=== PATIENT | male | born 1955 | race Two or more races ===

== ENCOUNTER 2016-10-16 12:33 | Observation (INO) | payer MEDICAID ==
[~2016-10-16] VITALS: Ht 165.1 cm; Wt 63.5 kg
[2016-10-16] MEDS ORDERED: SODIUM CHLORIDE 0.9% 1,000 ML IV ONE (13:18)
[2016-10-16] MEDS ORDERED: NALBUPHINE HCL 10 MG/1ml INJECTION IV ONE (13:30)
[2016-10-16] MEDS ORDERED: METOCLOPRAMIDE HCL 5MG/ml INJ 2ml VIAL IV ONE (13:30)
[2016-10-16 14:06] LABS: Basophils # (auto) 0 uL; Basophils % (auto) 0.1 % (0.0-2.0); DEFINITIVE VIEW TRANSMISSION; Eosinophils # (auto) 0.1 uL; Eosinophils % (auto) 0.7 % (0.0-7.0); Hemoglobin 11.3 g/dL (13.5-17.5); Lymphocytes # (auto) 2.8 uL; Lymphocytes % (auto) 13.8 % (10.0-50.0); Mean Corpuscular Hemoglobin 29.9 pg (28.0-32.0); Mean Corpuscular Hgb Conc. 32.3 g/dL (32.0-36.0); Mean Corpuscular Volume 92.5 fL (80.0-100.0); Mean Platelet Volume 7.1 fL (7.4-10.4); Monocytes # (auto) 1.4 uL; Monocytes % (auto) 7.1 % (0.0-12.0); Neutrophils # (auto) 15.7 uL; Neutrophils % (auto) 78.3 % (37.0-80.0); Platelet Count (auto) 352 10^3/uL (140-450); SUSPECT VIEW TRANSMISSION; White Blood Cell 20.1 10^3/uL (4.4-10.8)
[2016-10-16 14:10] LABS: Red Cell Distribution Width 26.5 % (11.6-16.0)
[2016-10-16 14:24] LABS: Albumin 3.3 g/dL (3.4-5.0); BUN/Creatinine Ratio 16.3; Calcium 8.9 mg/dL (8.5-10.1); Magnesium 2.2 mg/dL (1.6-2.6); Potassium 3.9 mmol/L (3.5-5.1)
[2016-10-16 14:25] LABS: Bilirubin, Total 0.7 mg/dL (0.2-1.0)
[2016-10-16 14:26] LABS: Total Protein 7.7 g/dL (6.4-8.2)
[2016-10-16 14:29] LABS: Anisocytosis Moderate; Platelet Estimate Adequate
[2016-10-16] MEDS ORDERED: ALPRAZolam 0.5 MG TAB PO ONE (17:15)
[2016-10-16] MEDS ORDERED: cefTRIAXone 1GM/50ML D5W 50 ML IV ONE ×2 (17:30→21:30)
[2016-10-16] MEDS ORDERED: ONDANSETRON HCL 4 MG/2 ML VIAL IV ONE ×2 (19:15→21:45)
[2016-10-16] MEDS ORDERED: MORPHINE SULFATE 4 MG/ML SYRG IV ONE (19:15)
[2016-10-16 20:29] LABS: Urine Bilirubin Negative (Negative); Urine Color Yellow (Yellow); Urine Glucose Normal (Normal); Urine Ketone Negative (Negative); Urine Nitrite Negative (Negative); Urine RBC 152 /hpf (0 - 3); Urine Urobilinogen Normal (Negative); Urine pH 6.5 (5.0-8.0)
[2016-10-16] MEDS ORDERED: CLINDAMYCIN 900MG IV 50 ML IV ONE (20:30)
[2016-10-16 20:32] LABS: Urine Blood 2+ /uL (Negative)
[2016-10-16] MEDS ORDERED: HYDROmorphone HCL 2 MG/ML VL IV ONE (21:45)
[2016-10-16] MEDS ORDERED: HYDROcodone-ACET 10/325MG TAB PO ONE (23:45)
[2016-10-17] MEDS ORDERED: diphenhdrAMINE HCL 50 MG/1 ML VL ONE (00:32)
[2016-10-17] MEDS ORDERED: diphenhdrAMINE HCL 50 MG/1 ML VL IV ONE (00:45)
[2016-10-17] MEDS ORDERED: ONDANSETRON HCL 4 MG/2 ML VIAL IV ONE (02:15)
[2016-10-17] MEDS ORDERED: HYDROmorphone HCL 2 MG/ML VL IV ONE (02:15)
[2016-10-17 05:50] VITALS: BP 129/68
== END 2016-10-17 07:52 | disposition home or self-care (01) | DRG 49 ==
LOC: EDBD 12:33 → ER 12:39 → OVERFLOW 13:19 → ER 10-17 07:52
PROVIDERS: ADMIT Emergency Medicine; ATTEND Emergency Medicine
DX: G06.2 Extradural and subdural abscess, unspecified (principal); E43 Unspecified severe protein-calorie malnutrition; K74.60 Unspecified cirrhosis of liver; J44.1 Chronic obstructive pulmonary disease with (acute) exacerbation; B18.2 Chronic viral hepatitis C; E11.9 Type 2 diabetes mellitus without complications; C62.92 Malignant neoplasm of left testis, unspecified whether descended or undescended; Z98.890 Other specified postprocedural states
CPT/HCPCS: 36415; 36600; 72131; 80053; 81001; 82805; 83605; 83735; 85025; 87040; 87077; 87186; 87205; 96361; 96365; 96366; 96367; 96375; 96376; 99285; G0378; J0696; J1170; J1200; J2270; J2300; J2405; J2765; J3490; J7030

== ENCOUNTER 2016-11-08 13:09 | Inpatient (IN) | payer MEDICAID ==
[~2016-11-08] VITALS: Ht 165.1 cm; Wt 66.5 kg
[2016-11-08] MEDS ORDERED: SODIUM CHLORIDE 0.9% 1,000 ML IVB ONE (13:33)
[2016-11-08] MEDS ORDERED: METOCLOPRAMIDE HCL 5MG/ml INJ 2ml VIAL IV ONE (13:45)
[2016-11-08] MEDS ORDERED: MORPHINE SULFATE 4 MG/ML SYRG IV ONE (13:45)
[2016-11-08 13:46] LABS: DEFINITIVE VIEW TRANSMISSION; Hematocrit 33.7 % (41.0-53.0); Hemoglobin 10.6 g/dL (13.5-17.5); Mean Corpuscular Hemoglobin 25.6 pg (28.0-32.0); Mean Corpuscular Hgb Conc. 31.4 g/dL (32.0-36.0); Mean Corpuscular Volume 81.6 fL (80.0-100.0); Mean Platelet Volume 6.5 fL (7.4-10.4); Platelet Count (auto) 554 10^3/uL (140-450); SUSPECT VIEW TRANSMISSION; White Blood Cell 22.9 10^3/uL (4.4-10.8)
[2016-11-08 13:57] LABS: Red Cell Distribution Width 27.1 % (11.6-16.0)
[2016-11-08 13:58] LABS: Metamyelocytes % 0; Myelocytes % 0; Promyelocytes % 0; Reactive Lymphocytes 0
[2016-11-08] MEDS ORDERED: VANCOMYCIN 1GM/250ML D5W 250 ML IV ONE (14:00)
[2016-11-08 14:04] LABS: INR 1.07 (0.9-1.15); Partial Thromboplastin Time 29.9 sec (22.64-33.71); Prothrombin Time 11.6 sec (9.37-12.3)
[2016-11-08 14:10] LABS: Albumin 2.7 g/dL (3.4-5.0); Alkaline Phosphatase 163 U/L (45-117); Anion Gap 8 (5-15); Aspartate Aminotransferase 25 U/L (15-37); Bilirubin, Total 0.4 mg/dL (0.2-1.0); Blood Urea Nitrogen 28 mg/dL (7-18); Calcium 8.7 mg/dL (8.5-10.1); Carbon Dioxide 27 mmol/L (21-32); Chloride 96 mmol/L (98-107); GFR African American 86 mL/min; GFR Non-African American 71 mL/min; Glucose 128 mg/dL (74-106); Magnesium 2.2 mg/dL (1.6-2.6); Potassium 4.7 mmol/L (3.5-5.1); Sodium 131 mmol/L (136-145); Total Protein 8.2 g/dL (6.4-8.2)
[2016-11-08 14:22] LABS: Toxic Granulation Slight
[2016-11-08 14:24] LABS: Anisocytosis Moderate; Hypochromia Slight; Platelet Estimate Increased; Stomatocytes Few
[2016-11-08 14:26] LABS: Polychromasia Slight
[2016-11-08] MEDS ORDERED: ACETAMINOPHEN 500 MG TAB PO ONE (16:45)
[2016-11-08] MEDS ORDERED: IBUPROFEN 600 MG TAB PO ONE (16:45)
[2016-11-08] MEDS ORDERED: SODIUM CHLORIDE 0.9% 1,000 ML IV ONE (17:00)
[2016-11-08] MEDS ORDERED: PIPERACILLIN-TAZOB 3.375GM 100 ML IV ONE (19:15)
[2016-11-08] MEDS ORDERED: SODIUM CHLORIDE 0.9% 1,000 ML IV SCH (20:45)
[2016-11-08] MEDS ORDERED: DEXTROSE (50%) 50ML SYRG IV PRN (22:30)
[2016-11-08] MEDS ORDERED: ACETAMINOPHEN 325 MG TAB PO PRN (22:45)
[2016-11-08] MEDS ORDERED: IBUPROFEN 400 MG TAB PO PRN (22:45)
[2016-11-09] MEDS: PIPERACILLIN-TAZOB 3.375GM 100 ML IV SCH ×2 (02:00→06:09)
[2016-11-09 03:48] VITALS: BP 139/65
[2016-11-09 03:53] LABS: BUN/Creatinine Ratio 30.3; Calcium 7.8 mg/dL (8.5-10.1); Potassium 3.9 mmol/L (3.5-5.1)
[2016-11-09 04:06] LABS: DEFINITIVE VIEW TRANSMISSION; Hematocrit 30.2 % (41.0-53.0); Hemoglobin 9.4 g/dL (13.5-17.5); Mean Corpuscular Hemoglobin 25.5 pg (28.0-32.0); Mean Corpuscular Volume 82.4 fL (80.0-100.0); Mean Platelet Volume 6.4 fL (7.4-10.4); Platelet Count (auto) 515 10^3/uL (140-450); SUSPECT VIEW TRANSMISSION; White Blood Cell 18.9 10^3/uL (4.4-10.8)
[2016-11-09 04:32] LABS: Metamyelocytes % 0; Myelocytes % 0; Promyelocytes % 0; Reactive Lymphocytes 0
[2016-11-09 04:56] LABS: Anisocytosis Moderate; Hypersegmented Neutrophils Present; Hypochromia Slight; Platelet Estimate Increased
[2016-11-09 04:57] LABS: Basophilic Stippling FEW; Ovalocytes FEW; Polychromasia Slight
[2016-11-09 05:07] LABS: B-Type Natriuretic Peptide 45.99 pg/mL (0-100)
[2016-11-09] MEDS: MORPHINE SULF INJ 2 MG/ML SYRINGE 1ML IV PRN ×4 (07:41→22:19)
[2016-11-09] MEDS: ACCU-CHEK COMFORT CURVE STRIP VI SCH ×4 (07:41→22:18)
[2016-11-09] MEDS: InsuLIN REG 1unit/0.01ml Soln (100units/ml) SC SCH ×4 (07:41→22:00)
[2016-11-09 09:21] LABS: Urine Bilirubin Negative (Negative); Urine Blood 1+ /uL (Negative); Urine Color Yellow (Yellow); Urine Glucose Normal (Normal); Urine Ketone Negative (Negative); Urine Nitrite Negative (Negative); Urine RBC 8 /hpf (0 - 3); Urine Urobilinogen Normal (Negative)
[2016-11-09] MEDS: MEROPENEM 1GM IVPB 100 ML IV SCH ×2 (09:46→18:10)
[2016-11-09] MEDS ORDERED: MEROPENEM 500MG IVPB 100 ML IV SCH (10:00)
[2016-11-09] MEDS: HYDROcodone-ACET 5/325MG TAB PO PRN ×3 (11:27→20:29)
[2016-11-09] MEDS: VANCOMYCIN 1GM/250ML D5W 250 ML IV SCH ×2 (11:42→22:18)
[2016-11-09] MEDS: PANTOPRAZOLE 40 MG TAB PO SCH (11:42)
[2016-11-09] MEDS: ENOXAPARIN SOD 40 MG/0.4 ML SYRINGE SC SCH (11:43)
[2016-11-09] MEDS ORDERED: VANCOMYCIN 1GM/250ML D5W 250 ML IV SCH (14:00)
[2016-11-09] MEDS: Boost Glucose Control 8 Ounces PO SCH ×3 (14:29→22:18)
[2016-11-09 17:15] VITALS: BP 141/71
[2016-11-09 20:00] VITALS: BP 160/77
[2016-11-09] MEDS: SODIUM CHLORIDE 0.9% 1,000 ML IV SCH (20:00)
[2016-11-10] VITALS: BP 152/70
[2016-11-10] MEDS: HYDROcodone-ACET 5/325MG TAB PO PRN ×6 (00:28→20:59)
[2016-11-10] MEDS: MEROPENEM 1GM IVPB 100 ML IV SCH ×3 (01:00→16:57)
[2016-11-10] MEDS: MORPHINE SULF INJ 2 MG/ML SYRINGE 1ML IV PRN ×4 (02:37→14:58)
[2016-11-10] MEDS: SODIUM CHLORIDE 0.9% 1,000 ML IV SCH ×4 (03:25→23:25)
[2016-11-10] MEDS ORDERED: NOR5T PO (03:32)
[2016-11-10] MEDS ORDERED: LISI10TA6 PO (03:32)
[2016-11-10] MEDS ORDERED: AML5T PO (03:32)
[2016-11-10] MEDS ORDERED: TAMS0.4C36 PO (03:32)
[2016-11-10] MEDS ORDERED: ALPR PO (03:32)
[2016-11-10] MEDS ORDERED: CLOP75TA41 PO (03:32)
[2016-11-10] MEDS ORDERED: MORP1CAP9 PO (03:32)
[2016-11-10] MEDS ORDERED: GABA-339 PO ×2 (03:45)
[2016-11-10] MEDS ORDERED: METF-312 PO (03:45)
[2016-11-10] MEDS ORDERED: MET50T PO (03:45)
[2016-11-10] MEDS ORDERED: CLON05T PO (03:45)
[2016-11-10] MEDS ORDERED: DIPH50TA9 PO (03:45)
[2016-11-10] MEDS ORDERED: VENL37.56 PO (03:45)
[2016-11-10] MEDS ORDERED: FAMO-12 PO (03:45)
[2016-11-10 04:00] VITALS: BP 147/77
[2016-11-10 05:31] LABS: Basophils # (auto) 0 uL; DEFINITIVE VIEW TRANSMISSION; Eosinophils # (auto) 0 uL; Eosinophils % (auto) 0.2 % (0.0-7.0); Hematocrit 30.6 % (41.0-53.0); Hemoglobin 9.6 g/dL (13.5-17.5); Lymphocytes # (auto) 1.1 uL; Lymphocytes % (auto) 7.1 % (10.0-50.0); Mean Corpuscular Hemoglobin 25.3 pg (28.0-32.0); Mean Corpuscular Hgb Conc. 31.2 g/dL (32.0-36.0); Mean Corpuscular Volume 80.9 fL (80.0-100.0); Mean Platelet Volume 6.3 fL (7.4-10.4); Monocytes # (auto) 1.2 uL; Monocytes % (auto) 7.9 % (0.0-12.0); Neutrophils # (auto) 13.3 uL; Neutrophils % (auto) 84.8 % (37.0-80.0); Platelet Count (auto) 463 10^3/uL (140-450); SUSPECT VIEW TRANSMISSION; White Blood Cell 15.7 10^3/uL (4.4-10.8)
[2016-11-10 05:39] LABS: Red Cell Distribution Width 25.9 % (11.6-16.0)
[2016-11-10 05:50] LABS: Anisocytosis Moderate; Hypochromia Slight; Platelet Estimate Increased
[2016-11-10 05:51] LABS: Ovalocytes FEW; Polychromasia Slight
[2016-11-10 05:52] LABS: Albumin 2.3 g/dL (3.4-5.0); Potassium 3.7 mmol/L (3.5-5.1)
[2016-11-10 05:54] LABS: BUN/Creatinine Ratio 16.7; Calcium 8.2 mg/dL (8.5-10.1)
[2016-11-10 06:00] LABS: Bilirubin, Total 0.3 mg/dL (0.2-1.0)
[2016-11-10] MEDS: Boost Glucose Control 8 Ounces PO SCH ×4 (06:00→22:00)
[2016-11-10] MEDS: ACCU-CHEK COMFORT CURVE STRIP VI SCH ×4 (07:00→22:00)
[2016-11-10] MEDS: InsuLIN REG 1unit/0.01ml Soln (100units/ml) SC SCH ×4 (07:00→22:00)
[2016-11-10 08:02] VITALS: BP 151/74
[2016-11-10] MEDS: PANTOPRAZOLE 40 MG TAB PO SCH (09:17)
[2016-11-10] MEDS: ENOXAPARIN SOD 40 MG/0.4 ML SYRINGE SC SCH (09:18)
[2016-11-10] MEDS: VANCOMYCIN 1GM/250ML D5W 250 ML IV SCH ×2 (09:28→22:43)
[2016-11-10 12:34] VITALS: BP 141/74
[2016-11-10] MEDS ORDERED: NICOTINE 14 MG/24HR TOPICAL PATCH TD ONE (14:45)
[2016-11-10 16:00] VITALS: BP 149/76
[2016-11-10] MEDS: HYDROmorphone HCL 2 MG/ML VL IV PRN ×2 (19:01→23:03)
[2016-11-10 20:00] VITALS: BP 145/67
[2016-11-11] VITALS: BP 144/76
[2016-11-11] MEDS: MEROPENEM 1GM IVPB 100 ML IV SCH ×3 (01:00→17:32)
[2016-11-11 04:00] VITALS: BP 152/76
[2016-11-11 04:59] LABS: Albumin 2.3 g/dL (3.4-5.0); BUN/Creatinine Ratio 14.5; Calcium 8.2 mg/dL (8.5-10.1); Potassium 3.2 mmol/L (3.5-5.1)
[2016-11-11 05:02] LABS: Bilirubin, Total 0.4 mg/dL (0.2-1.0)
[2016-11-11] MEDS: HYDROcodone-ACET 5/325MG TAB PO PRN ×4 (05:36→21:32)
[2016-11-11] MEDS: Boost Glucose Control 8 Ounces PO SCH ×4 (06:00→21:31)
[2016-11-11 06:33] LABS: Basophils # (auto) 0 uL; DEFINITIVE VIEW TRANSMISSION; Eosinophils # (auto) 0 uL; Eosinophils % (auto) 0.2 % (0.0-7.0); Hematocrit 29.4 % (41.0-53.0); Hemoglobin 9.2 g/dL (13.5-17.5); Lymphocytes # (auto) 1.4 uL; Mean Corpuscular Hemoglobin 25.4 pg (28.0-32.0); Mean Corpuscular Hgb Conc. 31.3 g/dL (32.0-36.0); Mean Platelet Volume 6.7 fL (7.4-10.4); Monocytes # (auto) 1.4 uL; Monocytes % (auto) 8.5 % (0.0-12.0); Neutrophils # (auto) 14.1 uL; Neutrophils % (auto) 83.3 % (37.0-80.0); Platelet Count (auto) 459 10^3/uL (140-450); SUSPECT VIEW TRANSMISSION; White Blood Cell 16.9 10^3/uL (4.4-10.8)
[2016-11-11] MEDS: SODIUM CHLORIDE 0.9% 1,000 ML IV SCH ×3 (06:45→17:39)
[2016-11-11] MEDS: InsuLIN REG 1unit/0.01ml Soln (100units/ml) SC SCH ×4 (06:45→21:38)
[2016-11-11] MEDS: ACCU-CHEK COMFORT CURVE STRIP VI SCH ×4 (06:45→21:32)
[2016-11-11] MEDS: HYDROmorphone HCL 2 MG/ML VL IV PRN ×5 (07:07→23:44)
[2016-11-11 07:21] LABS: Red Cell Distribution Width 25.6 % (11.6-16.0)
[2016-11-11 07:54] VITALS: BP 160/79
[2016-11-11 08:06] LABS: Anisocytosis Moderate; Stomatocytes Few
[2016-11-11 08:07] LABS: Hypochromia Slight; Platelet Estimate Increased; Polychromasia Slight
[2016-11-11] MEDS ORDERED: VANCOMYCIN PER PHARMACY 0 MG IV SCH (08:15)
[2016-11-11] MEDS: NICOTINE 14 MG/24HR TOPICAL PATCH TD SCH (10:00)
[2016-11-11] MEDS: ENOXAPARIN SOD 40 MG/0.4 ML SYRINGE SC SCH (10:12)
[2016-11-11] MEDS: VANCOMYCIN 1,250 MG in D5W 5% 250 ML IV SCH ×2 (10:12→21:31)
[2016-11-11] MEDS: PANTOPRAZOLE 40 MG TAB PO SCH (10:12)
[2016-11-11] MEDS ORDERED: POTASSIUM CHLORIDE 8 MEQ TAB PO ONE (10:45)
[2016-11-11 11:55] VITALS: BP 161/79
[2016-11-11 17:00] VITALS: BP 134/69
[2016-11-11 22:02] VITALS: BP 146/81
[2016-11-12] VITALS (7 sets, daily range): BP systolic 145–157; BP diastolic 69–83
[2016-11-12] MEDS: MEROPENEM 1GM IVPB 100 ML IV SCH ×3 (00:59→17:38)
[2016-11-12] MEDS: SODIUM CHLORIDE 0.9% 1,000 ML IV SCH ×4 (02:05→21:44)
[2016-11-12] MEDS: HYDROmorphone HCL 2 MG/ML VL IV PRN ×5 (03:45→20:13)
[2016-11-12] MEDS: Boost Glucose Control 8 Ounces PO SCH ×4 (06:04→21:45)
[2016-11-12] MEDS: InsuLIN REG 1unit/0.01ml Soln (100units/ml) SC SCH ×4 (06:28→21:50)
[2016-11-12] MEDS: ACCU-CHEK COMFORT CURVE STRIP VI SCH ×4 (06:28→21:44)
[2016-11-12 07:39] LABS: Basophils # (auto) 0 uL; Basophils % (auto) 0.1 % (0.0-2.0); DEFINITIVE VIEW TRANSMISSION; Eosinophils # (auto) 0.1 uL; Eosinophils % (auto) 0.3 % (0.0-7.0); Hematocrit 28.5 % (41.0-53.0); Lymphocytes # (auto) 1.3 uL; Lymphocytes % (auto) 6.4 % (10.0-50.0); Mean Corpuscular Hemoglobin 25.1 pg (28.0-32.0); Mean Corpuscular Hgb Conc. 31.5 g/dL (32.0-36.0); Mean Corpuscular Volume 79.7 fL (80.0-100.0); Mean Platelet Volume 6.7 fL (7.4-10.4); Monocytes # (auto) 1.4 uL; Monocytes % (auto) 7.4 % (0.0-12.0); Neutrophils # (auto) 16.9 uL; Neutrophils % (auto) 85.8 % (37.0-80.0); Platelet Count (auto) 454 10^3/uL (140-450); SUSPECT VIEW TRANSMISSION; White Blood Cell 19.6 10^3/uL (4.4-10.8)
[2016-11-12 07:54] LABS: Red Cell Distribution Width 25.6 % (11.6-16.0)
[2016-11-12 08:08] LABS: Albumin 2.1 g/dL (3.4-5.0); BUN/Creatinine Ratio 13.5; Potassium 3.4 mmol/L (3.5-5.1)
[2016-11-12] MEDS: ENOXAPARIN SOD 40 MG/0.4 ML SYRINGE SC SCH (08:08)
[2016-11-12] MEDS: PANTOPRAZOLE 40 MG TAB PO SCH (08:08)
[2016-11-12 08:10] LABS: Bilirubin, Total 0.4 mg/dL (0.2-1.0); Total Protein 6.9 g/dL (6.4-8.2)
[2016-11-12] MEDS: NICOTINE 14 MG/24HR TOPICAL PATCH TD SCH (08:10)
[2016-11-12] MEDS: ALBUTEROL SULF 2.5 MG/0.5ML(0.5%) NEB SOLN NEB PRN (08:50)
[2016-11-12] MEDS: IPRATROPIUM BROM 0.5 MG/2.5ML INH SOL NEB PRN (08:50)
[2016-11-12 09:03] LABS: Platelet Estimate Increased
[2016-11-12 09:04] LABS: Anisocytosis Moderate; Hypochromia Slight; Schistocytes FEW
[2016-11-12] MEDS: HYDROcodone-ACET 5/325MG TAB PO PRN ×4 (09:40→21:45)
[2016-11-12] MEDS: DAPTOmycin 500 MG in SODIUM CHL 0.9% 100 ML IV SCH (11:05)
[2016-11-12] MEDS: PIPERACILLIN-TAZO 4.5GM 100 ML IV SCH (18:42)
[2016-11-13] VITALS (7 sets, daily range): BP systolic 110–149; BP diastolic 66–76
[2016-11-13] MEDS: PIPERACILLIN-TAZO 4.5GM 100 ML IV SCH ×4 (00:30→18:10)
[2016-11-13] MEDS: HYDROmorphone HCL 2 MG/ML VL IV PRN ×5 (00:31→20:33)
[2016-11-13] MEDS: SODIUM CHLORIDE 0.9% 1,000 ML IV SCH ×3 (05:30→18:10)
[2016-11-13] MEDS: Boost Glucose Control 8 Ounces PO SCH ×4 (06:16→21:30)
[2016-11-13] MEDS: InsuLIN REG 1unit/0.01ml Soln (100units/ml) SC SCH ×4 (06:17→21:40)
[2016-11-13] MEDS: ACCU-CHEK COMFORT CURVE STRIP VI SCH ×4 (06:17→21:40)
[2016-11-13] MEDS: HYDROcodone-ACET 5/325MG TAB PO PRN ×3 (07:41→21:34)
[2016-11-13] MEDS: NICOTINE 14 MG/24HR TOPICAL PATCH TD SCH (10:00)
[2016-11-13] MEDS: ENOXAPARIN SOD 40 MG/0.4 ML SYRINGE SC SCH (10:06)
[2016-11-13] MEDS: PANTOPRAZOLE 40 MG TAB PO SCH (10:06)
[2016-11-13] MEDS: DAPTOmycin 500 MG in SODIUM CHL 0.9% 100 ML IV SCH (12:04)
[2016-11-14] MEDS: PIPERACILLIN-TAZO 4.5GM 100 ML IV SCH ×5 (00:18→23:56)
[2016-11-14] MEDS: HYDROmorphone HCL 2 MG/ML VL IV PRN ×7 (00:20→22:09)
[2016-11-14] MEDS: SODIUM CHLORIDE 0.9% 1,000 ML IV SCH ×4 (00:49→23:11)
[2016-11-14 05:00] VITALS: BP 150/73
[2016-11-14] MEDS: HYDROcodone-ACET 5/325MG TAB PO PRN ×2 (05:57→20:42)
[2016-11-14] MEDS: Boost Glucose Control 8 Ounces PO SCH ×4 (06:00→21:54)
[2016-11-14] MEDS: ACCU-CHEK COMFORT CURVE STRIP VI SCH ×4 (06:03→22:00)
[2016-11-14] MEDS: InsuLIN REG 1unit/0.01ml Soln (100units/ml) SC SCH ×4 (06:03→22:00)
[2016-11-14] MEDS ORDERED: NITROGLYCERIN 0.4 MG SL TAB SL PRN ×2 (07:00)
[2016-11-14] MEDS ORDERED: MORPHINE SULF INJ 2 MG/ML SYRINGE 1ML IV PRN ×2 (07:00)
[2016-11-14 09:00] VITALS: BP 142/72
[2016-11-14] MEDS: NICOTINE 14 MG/24HR TOPICAL PATCH TD SCH (09:22)
[2016-11-14] MEDS: PANTOPRAZOLE 40 MG TAB PO SCH (09:25)
[2016-11-14] MEDS: ENOXAPARIN SOD 40 MG/0.4 ML SYRINGE SC SCH (09:25)
[2016-11-14] MEDS: DAPTOmycin 500 MG in SODIUM CHL 0.9% 100 ML IV SCH (11:26)
[2016-11-14 13:00] VITALS: BP 149/71
[2016-11-14] MEDS: SODIUM CHLOR 0.9% PF (SALINE LOCK) 10ML VIAL IV SCH ×2 (14:01→22:08)
[2016-11-14 16:44] VITALS: BP 158/73
[2016-11-14 21:31] VITALS: BP 150/66
[2016-11-15] MEDS: HYDROmorphone HCL 2 MG/ML VL IV PRN ×6 (01:55→21:51)
[2016-11-15 04:35] VITALS: BP 153/64
[2016-11-15] MEDS: Boost Glucose Control 8 Ounces PO SCH ×4 (05:57→20:52)
[2016-11-15] MEDS: SODIUM CHLOR 0.9% PF (SALINE LOCK) 10ML VIAL IV SCH ×3 (05:57→21:09)
[2016-11-15] MEDS: PIPERACILLIN-TAZO 4.5GM 100 ML IV SCH ×3 (05:57→18:52)
[2016-11-15] MEDS: ACCU-CHEK COMFORT CURVE STRIP VI SCH ×4 (06:10→21:10)
[2016-11-15] MEDS: InsuLIN REG 1unit/0.01ml Soln (100units/ml) SC SCH ×4 (06:10→21:10)
[2016-11-15 06:23] LABS: Basophils # (auto) 0 uL; Basophils % (auto) 0.3 % (0.0-2.0); DEFINITIVE VIEW TRANSMISSION; Eosinophils # (auto) 0.1 uL; Eosinophils % (auto) 0.8 % (0.0-7.0); Hematocrit 30.9 % (41.0-53.0); Hemoglobin 9.6 g/dL (13.5-17.5); Lymphocytes # (auto) 1.7 uL; Mean Corpuscular Hemoglobin 24.8 pg (28.0-32.0); Mean Corpuscular Hgb Conc. 31.1 g/dL (32.0-36.0); Mean Corpuscular Volume 79.5 fL (80.0-100.0); Mean Platelet Volume 6.7 fL (7.4-10.4); Monocytes # (auto) 1.5 uL; Monocytes % (auto) 8.6 % (0.0-12.0); Neutrophils # (auto) 13.9 uL; Neutrophils % (auto) 80.3 % (37.0-80.0); Platelet Count (auto) 589 10^3/uL (140-450); SUSPECT VIEW TRANSMISSION; White Blood Cell 17.3 10^3/uL (4.4-10.8)
[2016-11-15 06:25] LABS: Red Cell Distribution Width 25.8 % (11.6-16.0)
[2016-11-15 06:42] LABS: Calcium 8.5 mg/dL (8.5-10.1); Magnesium 1.9 mg/dL (1.6-2.6); Potassium 3.7 mmol/L (3.5-5.1)
[2016-11-15 06:48] LABS: BUN/Creatinine Ratio 16.9
[2016-11-15 07:00] LABS: Anisocytosis Slight; Hypochromia Slight; Platelet Estimate Increased
[2016-11-15 09:00] VITALS: BP 135/75
[2016-11-15 09:03] VITALS: BP 153/64
[2016-11-15] MEDS: SODIUM CHLORIDE 0.9% 1,000 ML IV SCH ×2 (09:05→17:20)
[2016-11-15] MEDS: NICOTINE 14 MG/24HR TOPICAL PATCH TD SCH (10:00)
[2016-11-15] MEDS: PANTOPRAZOLE 40 MG TAB PO SCH (10:01)
[2016-11-15] MEDS: ENOXAPARIN SOD 40 MG/0.4 ML SYRINGE SC SCH (10:01)
[2016-11-15] MEDS: DAPTOmycin 500 MG in SODIUM CHL 0.9% 100 ML IV SCH (12:11)
[2016-11-15] MEDS ORDERED: MAGNESIUM OXIDE 400 MG TAB PO ONE (12:15)
[2016-11-15 13:00] VITALS: BP 139/64
[2016-11-15] MEDS ORDERED: GABAPENTIN 300 MG CAP PO ONE (15:30)
[2016-11-15 16:52] VITALS: BP 153/80
[2016-11-15] MEDS: HYDROcodone-ACET 5/325MG TAB PO PRN (19:46)
[2016-11-15] MEDS: GABAPENTIN 300 MG CAP PO SCH (21:10)
[2016-11-15] MEDS ORDERED: GABAPENTIN 300 MG CAP PO SCH (22:00)
[2016-11-15 22:21] VITALS: BP 137/64
[2016-11-16] MEDS: PIPERACILLIN-TAZO 4.5GM 100 ML IV SCH ×3 (01:00→15:11)
[2016-11-16] MEDS: HYDROmorphone HCL 2 MG/ML VL IV PRN ×3 (01:58→15:12)
[2016-11-16] MEDS: HYDROcodone-ACET 5/325MG TAB PO PRN (03:27)
[2016-11-16 05:00] VITALS: BP 142/76
[2016-11-16] MEDS: SODIUM CHLOR 0.9% PF (SALINE LOCK) 10ML VIAL IV SCH ×2 (05:57→14:00)
[2016-11-16] MEDS: Boost Glucose Control 8 Ounces PO SCH ×2 (05:57→12:00)
[2016-11-16] MEDS: SODIUM CHLORIDE 0.9% 1,000 ML IV SCH ×2 (05:57→15:12)
[2016-11-16 06:00] LABS: Basophils # (auto) 0.1 uL; Basophils % (auto) 0.3 % (0.0-2.0); DEFINITIVE VIEW TRANSMISSION; Eosinophils # (auto) 0.1 uL; Eosinophils % (auto) 0.7 % (0.0-7.0); Hematocrit 29.5 % (41.0-53.0); Hemoglobin 9.2 g/dL (13.5-17.5); Lymphocytes # (auto) 1.8 uL; Lymphocytes % (auto) 9.9 % (10.0-50.0); Mean Corpuscular Hgb Conc. 31.2 g/dL (32.0-36.0); Mean Corpuscular Volume 80.1 fL (80.0-100.0); Mean Platelet Volume 6.8 fL (7.4-10.4); Monocytes # (auto) 1.3 uL; Monocytes % (auto) 7.2 % (0.0-12.0); Neutrophils # (auto) 14.6 uL; Neutrophils % (auto) 81.9 % (37.0-80.0); Platelet Count (auto) 602 10^3/uL (140-450); Red Cell Distribution Width 25.5 % (11.6-16.0); SUSPECT VIEW TRANSMISSION; White Blood Cell 17.8 10^3/uL (4.4-10.8)
[2016-11-16] MEDS: ACCU-CHEK COMFORT CURVE STRIP VI SCH ×2 (06:08→11:24)
[2016-11-16] MEDS: GABAPENTIN 300 MG CAP PO SCH ×2 (06:08→15:11)
[2016-11-16] MEDS: InsuLIN REG 1unit/0.01ml Soln (100units/ml) SC SCH ×2 (06:08→11:25)
[2016-11-16 06:30] LABS: Platelet Estimate Increased
[2016-11-16 06:31] LABS: Anisocytosis Slight; Hypochromia Slight
[2016-11-16 08:00] VITALS: BP 158/65
[2016-11-16 08:51] VITALS: BP 158/68
[2016-11-16] MEDS: IPRATROPIUM BROM 0.5 MG/2.5ML INH SOL NEB PRN (09:05)
[2016-11-16] MEDS: ALBUTEROL SULF 2.5 MG/0.5ML(0.5%) NEB SOLN NEB PRN (09:05)
[2016-11-16] MEDS: NICOTINE 14 MG/24HR TOPICAL PATCH TD SCH ×2 (10:00→10:47)
[2016-11-16] MEDS: ENOXAPARIN SOD 40 MG/0.4 ML SYRINGE SC SCH (10:46)
[2016-11-16] MEDS: PANTOPRAZOLE 40 MG TAB PO SCH (10:47)
[2016-11-16] MEDS ORDERED: MULTIPLE VITAMINS W/ MINERALS TAB PO SCH (12:00)
[2016-11-16] MEDS ORDERED: ASCORBIC ACID 500 MG TAB PO SCH (12:00)
[2016-11-16] MEDS: DAPTOmycin 500 MG in SODIUM CHL 0.9% 100 ML IV SCH (12:39)
[2016-11-16 13:00] VITALS: BP 131/70
[2016-11-16] MEDS ORDERED: PRO-STAT 64 30ML PO SCH (18:00)
== END 2016-11-16 15:54 | disposition short-term general hospital (02) | DRG 720 ==
LOC: EDUNIT# 13:09 → EDBD 13:09 → ER 13:09 → TELE 13:10 → DOU IN ICU 11-09 17:30 → TELE-EAST 11-11 14:05
PROVIDERS: ADMIT Nurse Practitioner Acute Care; ATTEND Internal Medicine Pulmonary Disease
DX: A41.02 Sepsis due to Methicillin resistant Staphylococcus aureus (principal); G06.2 Extradural and subdural abscess, unspecified; E43 Unspecified severe protein-calorie malnutrition; C62.92 Malignant neoplasm of left testis, unspecified whether descended or undescended; E11.21 Type 2 diabetes mellitus with diabetic nephropathy; I12.9 Hypertensive chronic kidney disease with stage 1 through stage 4 chronic kidney disease, or unspecified chronic kidney disease; L02.212 Cutaneous abscess of back [any part, except buttock and flank]; D63.8 Anemia in other chronic diseases classified elsewhere; E87.1 Hypo-osmolality and hyponatremia; J44.9 Chronic obstructive pulmonary disease, unspecified; N18.2 Chronic kidney disease, stage 2 (mild); B96.5 Pseudomonas (aeruginosa) (mallei) (pseudomallei) as the cause of diseases classified elsewhere; D75.89 Other specified diseases of blood and blood-forming organs; E11.22 Type 2 diabetes mellitus with diabetic chronic kidney disease; Z68.24 Body mass index [BMI] 24.0-24.9, adult; F17.200 Nicotine dependence, unspecified, uncomplicated; E87.6 Hypokalemia; G89.29 Other chronic pain; Z90.89 Acquired absence of other organs; Z88.5 Allergy status to narcotic agent; Z71.6 Tobacco abuse counseling; E86.0 Dehydration; Z71.89 Other specified counseling
CPT/HCPCS: 36415; 71020; 80048; 80053; 80202; 81001; 82962; 83036; 83605; 83735; 83880; 84443; 84484; 85007; 85025; 85027; 85610; 85730; 87040; 87077; 87081; 87186; 87205; 87493; 93005; 93306; 94640; 94761; 96361; 96365; 96375; 97001; J1815; J2185; J2543; J7060